=== PATIENT | male | born 1970 | race Caucasian/White ===

== ENCOUNTER 2019-08-02 01:10 | Emergency (ER) | payer OTHER ==
[~2019-08-02] VITALS: Ht 198.1 cm; Wt 99.8 kg
--- NOTE | 2019-08-02 01:24 | NUR ---
ED Nurse Note: Patient smells of alcohol. Unsteady gait on transfer from [facility] to [facility]. No complaints of pain. Patient brought in by ambulance. No obvious injuries. Paramedics state that patient was laying on grass bystander dialled 911. When they arrived the patient was unable to walk away due to intoxication. Brought to ER. Trouser wet patient changed to gown and given warm blankets.
[2019-08-02 01:38] VITALS: BP 128/84
--- NOTE | 2019-08-02 01:39 | Emergency Room Report ---
History of Present Illness General Chief Complaint: Alcohol Intoxication Source: Patient Present Illness HPI Is a 49-year-old male who is an alcoholic. He was just discharged from here today. He walked out but came back by EMS for alcohol intoxication. No trauma. Bystander called 911. Patient denies any symptoms. Admits to drinking after getting out of here. Denies any fever chills but denies any nausea or vomiting. Nothing made it better. Nothing made it worse. Patient History Past Medical History: see triage record, old chart reviewed Past Surgical History: other Pertinent Family History: none Social History: Reports: alcohol use Immunizations: other Reviewed Nursing Documentation: PMH: Agreed; PSxH: Agreed Review of Systems Eye: Denies: eye pain, blurred vision ENT: Denies: ear pain, nose congestion, throat swelling Respiratory: Denies: cough, shortness of breath Cardiovascular: Denies: chest pain, palpitations Gastrointestinal: Denies: abdominal pain, diarrhea, nausea, vomiting Musculoskeletal: Denies: back pain, joint pain Skin: Denies: rash Neurological: Denies: headache, numbness Endocrine: Denies: increased thirst, increased urine Hematologic/Lymphatic: Denies: easy bruising All Other Systems: negative except mentioned in HPI Physical Exam Vital Signs Date Time Temp Pulse Resp B/P (MAP) Pulse Ox O2 Delivery O2 Flow Rate FiO2 08/02/19 01:11 98.6 88 18 160/96 (117) 99 Room Air Vital signs unremarkable except for high blood pressure Sp02 EP Interpretation: reviewed, normal General Appearance: well appearing, no apparent distress, alert, other - Intoxicated Head: normocephalic, atraumatic Eyes: bilateral eye PERRL, bilateral eye EOMI ENT: hearing grossly normal, normal pharynx Neck: full range of motion, supple, no meningismus Respiratory: chest non-tender, lungs clear, normal breath sounds Cardiovascular #1: regular rate, rhythm, no murmur Gastrointestinal: normal bowel sounds, non tender, no mass, no organomegaly, no bruit, non-distended Musculoskeletal: back normal, gait/station normal, normal range of motion Psychiatric: mood/affect normal Medical Decision Making Diagnostic Impression: Primary Impression: Acute alcoholic intoxication Qualified Codes: F10.920 - Alcohol use, unspecified with intoxication, uncomplicated ER Course This patient presents with alcohol intoxication. No trauma to warrant x-ray or CT scan. Will observe until clinical sobriety. Last Vital Signs Date Time Temp Pulse Resp B/P (MAP) Pulse Ox O2 Delivery O2 Flow Rate FiO2 08/02/19 01:34 88 18 Room Air 08/02/19 01:11 98.6 160/96 (117) 99 Status: improved Disposition: HOME, SELF-CARE Condition: Improved Patient Instructions: Alcohol Intoxication, [id number] Additional Instructions: Abstain from alcohol. Go to rehab. [facility]. Return if symptoms worsen. Diego Atkinson MD Aug 02, 2019 01:39
--- NOTE | 2019-08-02 02:29 | NUR ---
ED Nurse Note: Patient able to stand unaided to void. Patient vioded in urinal.
--- NOTE | 2019-08-02 02:35 | NUR ---
ED Nurse Note: Patient sleeping.
--- NOTE | 2019-08-02 05:56 | NUR ---
ER DISCHARGE NOTE: Patient is cleared to be discharged per ERMD, pt is aox4, on room air, with stable vital signs. pt was given dc and prescription instructions, pt was able to verbalize understanding, pt id band removed without complications. pt is able to ambulate with steady gait. pt took all belongings.
[2019-08-02 05:57] VITALS: BP 132/80
== END 2019-08-02 05:59 | disposition home or self-care (01) ==
LOC: EDBD 01:10 → EMR 01:32
DX: F10.920 Alcohol use, unspecified with intoxication, uncomplicated (principal)
CPT/HCPCS: 99282